=== PATIENT | female | born 1985 | race Caucasian/White ===

== ENCOUNTER 2018-10-02 14:17 | Emergency (ER) | payer SELFPAY ==
[2018-10-02 14:26] VITALS: BP 102/69; PULSE 70; TEMP 98.7; BMI 30.9
--- NOTE | 2018-10-02 14:26 | PDOC ---
Rapid Medical Evaluation Chief Complaint: Pain, Acute Time Seen by Provider: 10/02/18 14:24 Medical Evaluation: 10/02/18 14:24 I have performed a brief in-person evaluation of this patient. The patient presents with a chief complaint of:lower abdominal pain and left back pain with nausea since yesterday. Report vomiting 3 times today. Denies fever, chills, urinary frequency or dysuria Pertinent physical exam findings: A&O x 3 in NAD I have ordered the following: CBC, CMP, UA,UHCG,UCx The patient will proceed to the ED for further evaluation. Discharge Disposition - Diagnosis Abdominal pain Qualifiers: Abdominal location: unspecified location Qualified Code(s): R10.9 - Unspecified abdominal pain - Discharge Dispostion Condition at time of disposition: Stable - Referrals - Patient Instructions - Post Discharge Activity
[2018-10-02] MEDS ORDERED: SODIUM CHLORIDE 1,000 ML IV STA (15:53)
[2018-10-02] MEDS ORDERED: ONDANSETRON 4 MG/2 ML VIAL IVPUSH ONE (15:53)
--- NOTE | 2018-10-02 15:53 | PDOC ---
History of Present Illness - General Chief Complaint: Pain, Acute Stated Complaint: ABD PAIN/ BACK PAIN/ VOMITING Time Seen by Provider: 10/02/18 14:24 History Source: Patient - History of Present Illness Timing/Duration: reports: constant Past History - Past Medical History Allergies/Adverse Reactions: Allergies Allergy/AdvReac Type Severity Reaction Status Date / Time No Known Allergies Allergy Verified 10/02/18 14:26 Home Medications: Ambulatory Orders Famotidine [Pepcid] 20 mg PO BID #14 tablet 10/02/18 Mag Hydrox/Al Hydrox/Simeth [Mylanta Suspension -] 30 ml PO Q6H #1 bottle Ondansetron HCl [Zofran] 4 mg PO Q8H #6 tablet 10/02/18 - Suicide/Smoking/Psychosocial Hx Smoking History: Never smoked Have you smoked in the past 12 months: No Information on smoking cessation initiated: No Hx Alcohol Use: Yes Drug/Substance Use Hx: No Review of Systems - Review of Systems Constitutional: No: Chills, Fever, Weakness ABD/GI: Yes: Nausea, Vomiting. No: Constipated, Diarrhea, Abdominal cramping : No: Dysuria *Physical Exam - Vital Signs Last Vital Signs Temp Pulse Resp BP Pulse Ox 98.7 F 70 18 102/69 100 10/02/18 14:24 10/02/18 14:24 10/02/18 14:24 10/02/18 14:24 10/02/18 14:24 - Physical Exam General Appearance: Yes: Appropriately Dressed. No: Apparent Distress HEENT: positive: Normal Voice Neck: positive: Supple Respiratory/Chest: negative: Respiratory Distress Gastrointestinal/Abdominal: positive: Soft. negative: Tender Musculoskeletal: negative: CVA Tenderness Integumentary: positive: Dry, Warm Neurologic: positive: Fully Oriented, Alert, Normal Mood/Affect ED Treatment Course - LABORATORY CBC & Chemistry Diagram: 10/02/18 15:53 10/02/18 15:53 Medical Decision Making - Medical Decision Making 10/02/18 15:52 33 yo F, no sig hx, here w/ intractable n/v that started last night after she she had been out drinking for her birthday. Pt states she might have drank more than usual but did not mix drink and not concerned that her drink was drugged. Reports lower abd pain only when she vomits. No hematemesis, change in BM or dysuria See exam Intractable n/v in setting of ETOH use Stable and well caitlin w/ benign abd -zofran -IVF -labs -reassess 10/02/18 17:19 Leukocytosis to 18. Pt reports feeling significantly better w/ meds but reports a burning pain to epigastric area now, possible ETOH related gastritis. Abd remains benign on re-exam with no tenderness to RLQ. Will give dose of pepcid and reassess 10/02/18 18:26 On reassessment, patient reports no abdominal pain or nausea at this time and feels well enough to go home. Able to tolerate po here. Informed of leukocytosis to 18 which could be explained by multiple episodes of vomiting, but patient informed to return to ED immediately if she develops significant abdominal pain, especially over her R lower abd as we will have to r/o appy then *DC/Admit/Observation/Transfer Diagnosis at time of Disposition: Abdominal pain Qualifiers: Abdominal location: unspecified location Qualified Code(s): R10.9 - Unspecified abdominal pain - Discharge Dispostion Disposition: HOME Condition at time of disposition: Improved - Prescriptions Prescriptions: Famotidine [Pepcid] 20 mg PO BID #14 tablet Mag Hydrox/Al Hydrox/Simeth [Mylanta Suspension -] 30 ml PO Q6H #1 bottle Ondansetron HCl [Zofran] 4 mg PO Q8H #6 tablet - Referrals - Patient Instructions Additional Instructions: Your symptoms are possibly due to to alcohol intake. Take medications as prescribed and drink plenty of fluids. If symptoms worsen, especially if you develop significant abdominal pain to your right lower abdomen , you need to return to ED for a CAT scan to rule out appendicitis - Post Discharge Activity
[2018-10-02] MEDS ORDERED: ONDANSETRON 4 MG/2 ML VIAL ONE (16:11)
[2018-10-02 16:14] LABS: EPI CELLS 3.1 /HPF (0-5/HPF); HYALINE CASTS 20 /lpf (0-8); PH,URINE 6.5 (5.0-8.0); URINE APPEARANCE CLEAR; URINE BACTERIA 311.8 /hpf (NEGATIVE); URINE BILIRUBIN NEGATIVE (NEGATIVE); URINE COLOR YELLOW; URINE GLUCOSE (UA) NEGATIVE (NEGATIVE); URINE KETONE TRACE (NEGATIVE); URINE LEUK ESTERASE 1+ (NEGATIVE); URINE NITRITE NEGATIVE (NEGATIVE); URINE PROTEIN TRACE (NEGATIVE); URINE UROBILINOGEN 0.2 mg/dL (0.2-1.0); URINE WBC 32 /hpf (0-5)
[2018-10-02 16:16] LABS: BASO % 0.4 % (0-2.0); EOS % 0.1 % (0-4.5); HEMATOCRIT 40.4 % (32.4-45.2); HEMOGLOBIN 13.7 GM/dL (10.7-15.3); MCH 30.7 pg (25.7-33.7); MCHC 33.9 g/dl (32.0-36.0); MEAN CELL VOLUME 90.4 fl (80-96); MEAN PLT VOLUME 8.9 fl (7.5-11.1); MONO % 6.4 % (3.8-10.2); NEUT % 85.1 % (42.8-82.8); PLATELET COUNT 239 K/MM3 (134-434); RBC 4.47 M/mm3 (3.60-5.2); RDW 12.8 % (11.6-15.6)
[2018-10-02 16:35] LABS: URINE CRYSTALS FEW CAL OX /hpf
[2018-10-02 16:43] LABS: ALBUMIN 3.6 g/dl (3.4-5.0); ALK PHOS 112 U/L (45-117); ANION GAP 7 MMOL/L (8-16); BILIRUBIN,TOTAL 0.4 mg/dL (0.2-1); BLOOD UREA NITROGEN 7.7 mg/dL (7-18); CALCIUM 8.7 mg/dL (8.5-10.1); CHLORIDE 102 mmol/L (98-107); CO2 30 mmol/L (21-32); GLUCOSE,RANDOM 97 mg/dL (74-106); POTASSIUM 4.2 mmol/L (3.5-5.1); SGOT/AST 13 U/L (15-37); SGPT/ALT 28 U/L (13-61); SODIUM 139 mmol/L (136-145)
[2018-10-02] MEDS ORDERED: FAMOTIDINE 20 MG/50 ML IVPB 20 MG/50 ML MG IVPB ONE ×2 (17:17→17:43)
== END 2018-10-02 18:42 | disposition home or self-care (01) ==
LOC: JER 14:17
PROC: 3E0337Z Introduction of Electrolytic and Water Balance Substance into Peripheral Vein, Percutaneous Approach (ICD-10-PCS; principal; 2018-10-02)
PROC: 3E033GC Introduction of Other Therapeutic Substance into Peripheral Vein, Percutaneous Approach (ICD-10-PCS; 2018-10-02)
PROC: 3E033GC Introduction of Other Therapeutic Substance into Peripheral Vein, Percutaneous Approach (ICD-10-PCS; 2018-10-02)
DX: R10.9 Unspecified abdominal pain (principal)
CPT/HCPCS: 36415; 80053; 81003; 82550; 84484; 84703; 85025; 87086; 87186; 99283-25; J7030